=== PATIENT | male | born 1990 | race Caucasian/White ===

== ENCOUNTER 2017-07-19 21:30 | Emergency (ER) | payer SELFPAY ==
[2017-07-19 21:51] VITALS: TEMP 98.4; BMI 34.7
--- NOTE | 2017-07-19 22:07 | ED PDOC ---
Arrival/HPI - General Time Seen by Provider: 07/19/17 21:38 Historian: Patient - History of Present Illness Narrative History of Present Illness (Text): 07/19/17 21:39 26 y/o male, no significant pmh, nkda, c/o rt. sided facial abnormality started 2am this morning with no fall or trauma. Pt. stated that he had been having ear discomfort couple days ago but resolved, woke up with rt. sided facial paralysis which he can't close the eye with no eye pain and can't smile or making whole facial expression equally. Pt. has no numbness or tingling, no change in vision, no palpitation, no extremity weakness, no change in gait or posture, no other medical or psychological complaints. Past Medical History - Provider Review Nursing Documentation Reviewed: Yes Family/Social History - Physician Review Nursing Documentation Reviewed: Yes Family/Social History: Unknown Family HX Allergies/Home Meds Allergies/Adverse Reactions: Allergies No Known Allergies Allergy (Verified 07/19/17 22:07) Review of Systems - Review of Systems Constitutional: absent: Fatigue, Fevers Eyes: absent: Vision Changes ENT: absent: Hearing Changes Respiratory: absent: SOB, Cough Cardiovascular: absent: Chest Pain Gastrointestinal: absent: Abdominal Pain, Diarrhea, Nausea, Vomiting Skin: absent: Rash, Pruritis Neurological: Facial Droop (rt. sided). absent: Headache, Dizziness, Gait Changes, Speech Changes, Disequilibrium, Seizure Physical Exam Vital Signs Reviewed: Yes Temperature: Afebrile Blood Pressure: Normal Pulse: Regular Respiratory Rate: Normal Appearance: Positive for: Well-Appearing, Non-Toxic, Comfortable Pain Distress: None Mental Status: Positive for: Alert and Oriented X 3 - Systems Exam Head: Present: Atraumatic, Normocephalic, Other (+rt. sided facial paralysis which he can't close the rt. eye or smile completely, the whole examination follows the bells palsy pattern. ) Pupils: Present: PERRL Extroacular Muscles: Present: EOMI Conjunctiva: Present: Normal Ears: Present: NORMAL TM, Normal Canal. No: Erythema, TM Bulging, Fluid, TM Perf Mouth: Present: Moist Mucous Membranes, Normal Lips, Normal Tounge, Normal Teeth. No: Trismus Neck: Present: Normal Range of Motion Respiratory/Chest: Present: Clear to Auscultation, Good Air Exchange. No: Respiratory Distress, Accessory Muscle Use Cardiovascular: Present: Regular Rate and Rhythm, Normal S1, S2. No: Murmurs Abdomen: No: Tenderness, Distention, Peritoneal Signs Back: Present: Normal Inspection Upper Extremity: Present: Normal Inspection. No: Cyanosis, Edema Lower Extremity: Present: Normal Inspection. No: Edema Neurological: Present: GCS=15, CN II-XII Intact, Speech Normal, Motor Func Grossly Intact, Gait Normal, Memory Normal, Other (no drift, bilateral upper and lower extremities motor 5/5 with full sensation intact, ) Skin: Present: Warm, Dry, Normal Color. No: Rashes Psychiatric: Present: Alert, Oriented x 3, Normal Insight, Normal Concentration Medical Decision Making ED Course and Treatment: 07/19/17 22:09 -Pt. has no eye pain or discomfort, no indication of the fluorsein strip at this time. -Prednisone, eye patch for rt. eye with artificial tears, acyclovir -Case discussed with DR. Suero and he agreed that no CT indicated for head as this is classic bells palsy. I will also add lymes igg and igm as well. -Discharge home with acyclovir, prednisone, motrin, eye patch, artificial tear, follow up with your own pmd and opthalmologist/neurologist within 2 days, return to the ER for any new or worsening signs or symptoms. - PA / W[employer] / Resident Statement /DO has reviewed & agrees with the documentation as recorded. Disposition/Present on Arrival - Present on Arrival Any Indicators Present on Arrival: No History of DVT/PE: No History of Uncontrolled Diabetes: No Urinary Catheter: No History of Decub. Ulcer: No - Disposition Have Diagnosis and Disposition been Completed?: Yes Diagnosis: Gaviria's palsy Disposition: HOME/ ROUTINE Disposition Time: 22:12 Patient Plan: Discharge Condition: GOOD Additional Instructions: -Discharge home with acyclovir, prednisone, motrin, eye patch, artificial tear, follow up with your own pmd and opthalmologist/neurologist within 2 days, return to the ER for any new or worsening signs or symptoms. Prescriptions: Acyclovir [Zovirax] 400 mg PO 5XD #50 tab Dextran 70/Hypromellose [Artificials Tears Drops] 2 drop OP TID PRN #1 bot PRN Reason: Other Ibuprofen [Motrin Tab] 600 mg PO TID PRN #30 tab PRN Reason: Other Prednisone 50 mg PO DAILY #4 tab Referrals: Bay Ortiz MD [Staff Provider] - Follow up with primary Camilo Ayala MD [Staff Provider] - [place] [facility] [place] [facility] [place] [facility] [place] - Follow up with primary Forms: WORK NOTE
[2017-07-19 22:41] VITALS: BP 125/87; PULSE 68; RESP 17; O2SAT 100
== END 2017-07-19 22:40 | disposition home or self-care (01) ==
LOC: ED 21:30
DX: G51.0 Bell's palsy (principal)

== ENCOUNTER 2017-10-10 01:00 | Emergency (ER) | payer OTHER ==
[2017-10-10 01:00] VITALS: BMI 34.7
[2017-10-10 01:17] VITALS: PULSE 74; RESP 18; TEMP 98
--- NOTE | 2017-10-10 01:23 | ED PDOC ---
Arrival/HPI - General Chief Complaint: Chest Pain Time Seen by Provider: 10/10/17 01:18 Historian: Patient - History of Present Illness Narrative History of Present Illness (Text): 10/10/17 01:22 Marisela Valencia is a 27 year old male, with no significant past medical history, who presents to the emergency department complaining of chest pain. Patient states he has been intermittent left-sided chest pain radiating down his left arm for the past 5 days. Patient also notes some occasional abdominal discomfort. Patient denies any fever, chills, chest pain, shortness of breath, abdominal pain, nausea, vomiting, diarrhea, urinary symptoms, back pain, neck pain, headache, dizziness, or any other complaints. Symptom Onset: Gradual Symptom Course: Unchanged Activities at Onset: Light Context: Home Past Medical History - Provider Review Nursing Documentation Reviewed: Yes - Infectious Disease Hx of Infectious Diseases: None - Cardiac Hx Cardiac Disorders: No - Pulmonary Hx Respiratory Disorders: No - Neurological Hx Neurological Disorder: No - HEENT Hx HEENT Disorder: No - Renal Hx Renal Disorder: No - Endocrine/Metabolic Hx Endocrine Disorders: No - Hematological/Oncological Hx Blood Disorders: No - Integumentary Hx Dermatological Disorder: No - Musculoskeletal/Rheumatological Hx Musculoskeletal Disorders: No - Gastrointestinal Hx Gastrointestinal Disorders: No - Genitourinary/Gynecological Hx Genitourinary Disorders: No - Psychiatric Hx Psychophysiologic Disorder: No Hx Substance Use: No - Anesthesia Hx Anesthesia: No Family/Social History - Physician Review Nursing Documentation Reviewed: Yes Family/Social History: Unknown Family HX Smoking Status: Never Smoked Hx Alcohol Use: No Hx Substance Use: No Allergies/Home Meds Allergies/Adverse Reactions: Allergies No Known Allergies Allergy (Verified 10/10/17 01:17) Home Medications: Home Meds Medication Instructions Recorded Confirmed No Known Home Med 10/10/17 10/10/17 Review of Systems - Physician Review All systems were reviewed & negative as marked: Yes - Review of Systems Constitutional: Normal. absent: Fevers Eyes: Normal ENT: Normal Respiratory: Normal. absent: SOB Cardiovascular: Chest Pain Gastrointestinal: Abdominal Pain. absent: Diarrhea, Nausea, Vomiting Genitourinary Male: Normal. absent: Dysuria, Frequency, Hematuria, Urinary Output Changes Musculoskeletal: Normal. absent: Back Pain, Neck Pain Skin: Normal. absent: Rash Neurological: Normal. absent: Headache, Dizziness Endocrine: Normal Hemo/Lymphatic: Normal Psychiatric: Normal Physical Exam Vital Signs Reviewed: Yes Vital Signs Temp Pulse Resp BP Pulse Ox 10/10/17 04:00 18 120/75 99 10/10/17 01:14 98 F 74 18 141/78 100 Temperature: Afebrile Blood Pressure: Normal Pulse: Regular Respiratory Rate: Normal Appearance: Positive for: Well-Appearing, Non-Toxic, Comfortable Pain Distress: None Mental Status: Positive for: Alert and Oriented X 3 - Systems Exam Head: Present: Atraumatic, Normocephalic Pupils: Present: PERRL Extroacular Muscles: Present: EOMI Conjunctiva: Present: Normal Mouth: Present: Moist Mucous Membranes Neck: Present: Normal Range of Motion. No: Meningeal Signs, MIDLINE TENDERNESS , Paraspinal Tenderness Respiratory/Chest: Present: Clear to Auscultation, Good Air Exchange. No: Respiratory Distress, Accessory Muscle Use Cardiovascular: Present: Regular Rate and Rhythm, Normal S1, S2. No: Murmurs Abdomen: No: Tenderness, Distention, Peritoneal Signs Back: Present: Normal Inspection. No: CVA Tenderness, Midline Tenderness, Paraspinal Tenderness Upper Extremity: Present: Normal Inspection. No: Cyanosis, Edema Lower Extremity: Present: Normal Inspection. No: Edema Neurological: Present: GCS=15, CN II-XII Intact, Speech Normal Skin: Present: Warm, Dry, Normal Color. No: Rashes Psychiatric: Present: Alert, Oriented x 3, Normal Insight, Normal Concentration Medical Decision Making ED Course and Treatment: 10/10/17 01:22 Impression: 27 year old male complaining of left-sided chest pain radiating down his right arm. Plan: -- EKG -- Chest X-Ray -- Labs, cardiac enzymes -- UA -- Reassess and disposition Prior Visits: Notes and results from previous visits were reviewed. Progress Notes: Reviewed EKG, NSR at [address]-segment elevations or depressions, no T-wave inversions, normal intervals. 10/10/17 02:06 Chest X-Ray reviewed, shows no acute processes. 10/10/17 03:53 On reevaluation the patient feels better and is in no acute distress. I have discussed the results and plan with the patient, who expresses understanding. Patient given the opportunity to ask question, all questions were answered and there is agreement with the plan to discharge the patient home. Patient is stable for discharge. Patient was instructed to follow up with physician/clinic in 1-2 days or return if symptoms persist/worsen or new concerning symptoms arise. - Lab Interpretations Lab Results: 10/10/17 02:14 10/10/17 02:14 Lab Results 10/10/17 02:23: Urine Color Yellow, Urine Appearance Clear, Urine pH 7.5, Ur Specific [place] 1.010, Urine Protein Negative, Urine Glucose (UA) Negative, Urine Ketones Trace H, Urine Blood Negative, Urine Nitrate Negative, Urine Bilirubin Negative, Urine Urobilinogen 1.0 H, Ur Leukocyte Esterase Negative 10/10/17 02:14: Sodium 143, Potassium 3.9, Chloride 103, Carbon Dioxide 27, Anion Gap 16, BUN 17, Creatinine 1.0, Est GFR ( Amer) > 60, Est GFR (Non- Af Amer) > 60, Random Glucose 90, Calcium 9.5, Magnesium 2.0, Total Bilirubin 0.7, AST 24, ALT 33, Alkaline Phosphatase 60, Lactate Dehydrogenase 381, Total Creatine Kinase 128, Troponin I < 0.01, Total Protein 8.0, Albumin 4.6, Globulin 3.4, Albumin/Globulin Ratio 1.4 10/10/17 02:14: WBC 10.4, RBC 5.48, Hgb 15.7, Hct 45.8, MCV 83.6, MCH 28.6, MCHC 34.3, RDW 13.8, Plt Count 210, MPV 10.7, Gran % 54.3, Lymph % (Auto) 37.5 H , [place] % (Auto) 6.2 H, Eos % (Auto) 1.6, Baso % (Auto) 0.4, Gran # 5.67, Lymph # (Auto) 3.9 H, [place] # (Auto) 0.7 H, Eos # (Auto) 0.2, Baso # (Auto) 0.04 I have reviewed the lab results: Yes - RAD Interpretation Radiology Orders: 10/10/17 01:40 CHEST PORTABLE [RAD] Stat Print Support Specialist: ED Physician - EKG Interpretation Interpreted by ED Physician: Yes Type: 12 lead EKG - Scribe Statement The provider has reviewed the documentation as recorded by the Rex Brown Provider Scribe Attestation: All medical record entries made by the Scribe were at my direction and personally dictated by me. I have reviewed the chart and agree that the record accurately reflects my personal performance of the history, physical exam, medical decision making, and the department course for this patient. I have also personally directed, reviewed, and agree with the discharge instructions and disposition. Disposition/Present on Arrival - Present on Arrival Any Indicators Present on Arrival: No History of DVT/PE: No History of Uncontrolled Diabetes: No Urinary Catheter: No History of Decub. Ulcer: No History Surgical Site Infection Following: None - Disposition Have Diagnosis and Disposition been Completed?: Yes Diagnosis: Chest pain Disposition: HOME/ ROUTINE Disposition Time: 03:53 Condition: GOOD Discharge Instructions (ExitCare): Chest Pain, Chest Pain (ED) Referrals: [facility] at [facility] [place] [Outside] - Follow up with primary Beth Hart MD [Medical Doctor] - Follow up with primary Forms: [employer] (Romanian)
[2017-10-10 02:30] LABS: BASO # 0.04 K/mm3 (0.0-2.0); BASO % 0.4 % (0.0-3.0); EOS # 0.2 (0.0-0.7); EOS % 1.6 % (1.5-5.0); GRAN # 5.67 (1.4-6.5); GRAN % 54.3 % (50.0-68.0); HEMOGLOBIN 15.7 g/dL (14.0-18.0); LYMPH # 3.9 (1.2-3.4); LYMPH % 37.5 % (22.0-35.0); MEAN CELL VOLUME 83.6 fl (80.0-105.0); MEAN CORPUSCULAR HEMOGLOBIN 28.6 pg (25.0-35.0); MEAN CORPUSCULAR HGB CONC 34.3 g/dl (31.0-37.0); MEAN PLATELET VOLUME 10.7 fl (7.0-11.0); MONO # 0.7 (0.1-0.6); MONO % 6.2 % (1.0-6.0); RBC 5.48 10^6/uL (3.5-6.1); RED CELL DISTRIBUTION WIDTH 13.8 % (11.5-14.5); WHITE BLOOD COUNT 10.4 10^3/ul (4.5-11.0)
[2017-10-10 02:33] LABS: PH,URINE 7.5 (4.7-8.0); URINE BILIRUBIN NEGATIVE (NEGATIVE); URINE BLOOD NEGATIVE (NEGATIVE); URINE GLUCOSE (UA) NEGATIVE (NEGATIVE); URINE LEUKOCYTE ESTERASE NEGATIVE Leu/uL (NEGATIVE); URINE PROTEIN NEGATIVE mg/dL (<30 mg/dL)
[2017-10-10 02:36] LABS: ALB/GLOB RATIO 1.4 (1.1-1.8); ALBUMIN 4.6 g/dL (3.0-4.8); ALT/SGPT 33 U/L (7-56); AST/SGOT 24 U/L (17-59); BLOOD UREA NITROGEN 17 mg/dL (7-21); CALCIUM 9.5 mg/dL (8.4-10.5); GFR AFRICAN-AMERICAN > 60; GFR NON-AFRICAN AMERICAN > 60
[2017-10-10 02:37] LABS: URINE APPEARANCE CLEAR (CLEAR); URINE COLOR YELLOW (YELLOW)
[2017-10-10 02:47] LABS: TROPONIN I < 0.01 ng/mL
[2017-10-10 04:15] VITALS: BP 120/75; O2SAT 99
--- NOTE | 2017-10-10 09:29 | RAD ---
Date of service: 10/10/2017 HISTORY: cp COMPARISON: No prior. FINDINGS: LUNGS: No active pulmonary disease. PLEURA: No significant pleural effusion identified, no pneumothorax apparent. CARDIOVASCULAR: Normal. OSSEOUS STRUCTURES: No significant abnormalities. VISUALIZED UPPER ABDOMEN: Normal. OTHER FINDINGS: None. IMPRESSION: No active disease.
--- NOTE | 2017-10-10 10:09 | CARD ---
APPROVED REPORT Date of service: 10/10/2017 EKG Measurement Heart [id number] <Conclusion> Normal sinus rhythm Normal ECG
== END 2017-10-10 04:12 | disposition home or self-care (01) ==
LOC: ED 01:00
DX: R07.9 Chest pain, unspecified (principal)

== ENCOUNTER 2018-03-26 19:36 | Emergency (ER) | payer OTHER ==
[2018-03-26 20:21] VITALS: BMI 29.8
[2018-03-26 20:23] VITALS: RESP 18; O2SAT 98
--- NOTE | 2018-03-26 20:36 | ED PDOC ---
Arrival/HPI - General Chief Complaint: Back Pain Time Seen by Provider: 03/26/18 20:30 Historian: Patient - History of Present Illness Narrative History of Present Illness (Text): 03/26/18 20:36 Marisela Valencia is a 27 year old male, with no significant past medical history, who presents to the emergency department complaining of back pain. Patient states he has been experiencing intermittent bilateral lower back pain for the past 2 weeks with some abdominal discomfort. Patient denies any fever, chills, chest pain, shortness of breath, nausea, vomiting, neck pain, headache, dizziness, or any other complaints. Symptom Onset: Gradual Symptom Course: Unchanged Activities at Onset: Light Context: Home Past Medical History - Provider Review Nursing Documentation Reviewed: Yes - Infectious Disease Hx of Infectious Diseases: None - Cardiac Hx Cardiac Disorders: No - Pulmonary Hx Respiratory Disorders: No - Neurological Hx Neurological Disorder: No - HEENT Hx HEENT Disorder: No - Renal Hx Renal Disorder: No - Endocrine/Metabolic Hx Endocrine Disorders: No - Hematological/Oncological Hx Blood Disorders: No - Integumentary Hx Dermatological Disorder: No - Musculoskeletal/Rheumatological Hx Musculoskeletal Disorders: No - Gastrointestinal Hx Gastrointestinal Disorders: No - Genitourinary/Gynecological Hx Genitourinary Disorders: No - Psychiatric Hx Psychophysiologic Disorder: No Hx Substance Use: No - Anesthesia Hx Anesthesia: No Family/Social History - Physician Review Nursing Documentation Reviewed: Yes Family/Social History: Unknown Family HX Smoking Status: Never Smoked Hx Alcohol Use: No Hx Substance Use: No Allergies/Home Meds Allergies/Adverse Reactions: Allergies No Known Allergies Allergy (Verified 03/26/18 20:21) Home Medications: Home Meds Medication Instructions Recorded Confirmed No Known Home Med 10/10/17 03/26/18 Review of Systems - Physician Review All systems were reviewed & negative as marked: Yes - Review of Systems Constitutional: Normal. absent: Fevers Eyes: Normal ENT: Normal Respiratory: Normal. absent: SOB, Cough Cardiovascular: Normal. absent: Chest Pain Gastrointestinal: Abdominal Pain Genitourinary Male: Normal. absent: Dysuria, Frequency, Hematuria, Urinary Output Changes Musculoskeletal: Back Pain. absent: Neck Pain Skin: Normal. absent: Rash Neurological: Normal. absent: Headache, Dizziness Endocrine: Normal Hemo/Lymphatic: Normal Psychiatric: Normal Physical Exam Vital Signs Reviewed: Yes Vital Signs Temp Pulse Resp BP Pulse Ox 03/26/18 20:22 98.3 F 83 18 129/81 98 Temperature: Afebrile Blood Pressure: Normal Pulse: Regular Respiratory Rate: Normal Appearance: Positive for: Well-Appearing, Non-Toxic, Comfortable Pain Distress: None Mental Status: Positive for: Alert and Oriented X 3 - Systems Exam Head: Present: Atraumatic, Normocephalic Pupils: Present: PERRL Extroacular Muscles: Present: EOMI Conjunctiva: Present: Normal Mouth: Present: Moist Mucous Membranes Neck: Present: Normal Range of Motion Respiratory/Chest: Present: Clear to Auscultation, Good Air Exchange. No: Respiratory Distress, Accessory Muscle Use Cardiovascular: Present: Regular Rate and Rhythm, Normal S1, S2. No: Murmurs Abdomen: No: Tenderness, Distention, Peritoneal Signs Back: Present: Normal Inspection Upper Extremity: Present: Normal Inspection. No: Cyanosis, Edema Lower Extremity: Present: Normal Inspection. No: Edema Neurological: Present: GCS=15, CN II-XII Intact, Speech Normal Skin: Present: Warm, Dry, Normal Color. No: Rashes Psychiatric: Present: Alert, Oriented x 3, Normal Insight, Normal Concentration Medical Decision Making ED Course and Treatment: 03/26/18 20:36 Impression: 27 year old male complaining of lower back pain and abdominal discomfort. Plan: -- Labs -- Urinalysis -- Reassess and disposition Prior Visits: Notes and results from previous visits were reviewed. Progress Notes: 03/27/18 01:52 CT Abdomen and Pelvis: Uncomplicated colonic diverticulosis. Scattered fluid-filled small bowel loops. The liver is of uniform attenuation without mass or defect. There is no intra or extrahepatic biliary ductal dilatation. The spleen is normal. The gallbladder is within normal limits. The pancreas is of normal contour and attenuation characteristics. There is no evidence of adrenal mass. Both kidneys demonstrate prompt and equal nephrograms. The kidneys are normal in size, shape and configuration. There is no evidence of renal or ureteral mass. No renal or ureteral calculi are identified. There is no hydroureter or hydronephrosis. No evidence for appendicitis. There is no bowel wall thickening. No evidence for small or large bowel obstruction. There is no evidence of abdominal ascites or lymphadenopathy. There is no evidence of intrinsic or extrinsic bladder mass. There is no pelvic ascites or lymphadenopathy. Images of the lung bases show no evidence of pleural or parenchymal mass. There are no pleural effusions. The bony structures are free of lytic or blastic lesions. IMPRESSION: Scattered fluid-filled small bowel loops. Probably developing enteritis. Thank you for your kind referral of this patient. Electronically signed on Mar 27, 2018 1:43:32 AM EST by: Mckinley Rosario M.D., Certified by ABR, MSK, Neuroradiology Re-evaluation Time: 02:00 Reassessment Condition: Re-examined, Improved - Scribe Statement The provider has reviewed the documentation as recorded by the Shahramibaura Brown Provider Scribe Attestation: All medical record entries made by the Scribe were at my direction and personally dictated by me. I have reviewed the chart and agree that the record accurately reflects my personal performance of the history, physical exam, medical decision making, and the department course for this patient. I have also personally directed, reviewed, and agree with the discharge instructions and disposition. Disposition/Present on Arrival - Present on Arrival Any Indicators Present on Arrival: No History of DVT/PE: No History of Uncontrolled Diabetes: No Urinary Catheter: No History of Decub. Ulcer: No History Surgical Site Infection Following: None - Disposition Have Diagnosis and Disposition been Completed?: Yes Diagnosis: Abdominal pain, Enteritis Disposition: HOME/ ROUTINE Disposition Time: 02:10 Condition: GOOD Discharge Instructions (ExitCare): Viral Gastroenteritis, Acute Abdomen (Belly Pain) Referrals: Beth Hart MD [Medical Doctor] - Follow up with primary Forms: [employer] (Burmese)
[2018-03-26 21:59] LABS: BASO # 0.04 K/mm3 (0.0-2.0); BASO % 0.3 % (0.0-3.0); EOS # 0.1 (0.0-0.7); EOS % 1.2 % (1.5-5.0); LYMPH # 3.7 (1.2-3.4); LYMPH % 30.3 % (22.0-35.0); MEAN CELL VOLUME 84.9 fl (80.0-105.0); MEAN CORPUSCULAR HEMOGLOBIN 28.7 pg (25.0-35.0); MEAN CORPUSCULAR HGB CONC 33.8 g/dl (31.0-37.0); MEAN PLATELET VOLUME 11.4 fl (7.0-11.0); MONO # 0.5 (0.1-0.6); MONO % 4.5 % (1.0-6.0); RBC 5.58 10^6/uL (3.5-6.1); RED CELL DISTRIBUTION WIDTH 13.4 % (11.5-14.5); URINE BILIRUBIN NEGATIVE (NEGATIVE); URINE BLOOD NEGATIVE (NEGATIVE); URINE GLUCOSE (UA) NEGATIVE (NEGATIVE); URINE LEUKOCYTE ESTERASE NEGATIVE Leu/uL (NEGATIVE); URINE PROTEIN NEGATIVE mg/dL (<30 mg/dL); URINE UROBILINOGEN 0.2 E.U./dL (<1 E.U./dL); WHITE BLOOD COUNT 12.1 10^3/uL (4.5-11.0)
[2018-03-26 22:06] LABS: URINE APPEARANCE CLEAR (CLEAR); URINE COLOR YELLOW (YELLOW)
[2018-03-27 00:22] LABS: ALB/GLOB RATIO 1.3 (1.1-1.8); ALBUMIN 4.7 g/dL (3.0-4.8); ALT/SGPT 30 U/L (7-56); AST/SGOT 26 U/L (17-59); BLOOD UREA NITROGEN 22 mg/dL (7-21); GFR NON-AFRICAN AMERICAN > 60; LIPASE 82 U/L (23-300)
[2018-03-27] MEDS ORDERED: Iohexol 350 MG/100 ML VIAL ONE (00:37)
[2018-03-27] MEDS ORDERED: Atrop/Hyosc/Scopal/PB Elixir (120 ml) PO STA (01:55)
[2018-03-27] MEDS ORDERED: Alum-Mag Hydrox-Simethicone Susp (30 mL) PO STA (01:56)
[2018-03-27 02:51] VITALS: BP 121/76; PULSE 72; TEMP 97.2
--- NOTE | 2018-03-27 08:43 | CT ---
Date of service: 03/27/2018 PROCEDURE: CT Abdomen and Pelvis with contrast HISTORY: abd pain COMPARISON: None. TECHNIQUE: Following the intravenous administration of iodinated contrast material, a CT examination of the abdomen and pelvis was performed from the domes of the diaphragms to the symphysis pubis with reformatted datasets provided in axial, sagittal and coronal planes. Oral contrast was not administered as per referring physician request. Contrast dose: Omnipaque 350, 100 cc Radiation dose: Total exam DLP = 602.25 mGy-cm. This CT exam was performed using one or more of the following dose reduction techniques: Automated exposure control, adjustment of the mA and/or kV according to patient size, and/or use of iterative reconstruction technique. FINDINGS: LOWER THORAX: Unremarkable. LIVER: Unremarkable. No gross lesion or ductal dilatation. GALLBLADDER AND BILE DUCTS: Unremarkable. PANCREAS: Unremarkable. No gross lesion or ductal dilatation. SPLEEN: Unremarkable. ADRENALS: Unremarkable. No mass. KIDNEYS AND URETERS: Unremarkable. No hydronephrosis. No solid mass. VASCULATURE: Unremarkable. No aortic aneurysm. No aortic atherosclerotic calcification or mural plaque present. BOWEL: Limited sigmoid diverticular change are identified without diverticulitis evident. No obstruction. No gross mural thickening. APPENDIX: Normal appendix. PERITONEUM: Unremarkable. No free fluid. No free air. LYMPH NODES: Unremarkable. No enlarged lymph nodes. BLADDER: Unremarkable. REPRODUCTIVE: Unremarkable. BONES: No acute fracture. OTHER FINDINGS: None. IMPRESSION: Nonacute abdomen pelvis CT examination as discussed above. Sigmoid diverticulosis is noted without diverticulitis. Preliminary report provided by [id number], 03/27/2018 1:43 a.m..
== END 2018-03-27 02:00 | disposition home or self-care (01) ==
LOC: ED 19:36
DX: K52.9 Noninfective gastroenteritis and colitis, unspecified (principal); R10.9 Unspecified abdominal pain
CPT/HCPCS: 74177; 80053; 81003; 83690; 85025; 99283; Q9967